=== PATIENT | female | born 1945 | race Caucasian/White ===

== ENCOUNTER 2022-02-11 04:48 | Day surgery (SDC) | payer OTHER, BC ==
[2022-02-06 12:27] VITALS: BMI 29.0
[2022-02-11 09:06] VITALS: TEMP 98
[2022-02-11 13:43] VITALS: BP 126/63; PULSE 82
== END 2022-02-11 12:20 | disposition home or self-care (01) ==
LOC: JASU-ENDO 04:48
PROVIDERS: ATTEND Internal Medicine Gastroenterology
PROC: 0DJD8ZZ Inspection of Lower Intestinal Tract, Via Natural or Artificial Opening Endoscopic (ICD-10-PCS; principal; 2022-02-11 10:00)
DX: Z12.11 Encounter for screening for malignant neoplasm of colon (principal); K57.30 Diverticulosis of large intestine without perforation or abscess without bleeding; K59.00 Constipation, unspecified